=== PATIENT | female | born 1950 | race African-American/Black ===

== ENCOUNTER 2018-10-07 10:53 | Day surgery (SDC) | payer MEDICARE ==
[~2018-10-07 10:53] MED LIST: ACETAMINOPHEN 1,000 MG/100 ML BTL IV ONE; CEFAZOLIN 2 Gram 2 GM/50 ML BAG IVPB ONE
[2018-10-07] MEDS ORDERED: FENTANYL PF 100MCG/2ML VIAL IV ONE (10:54)
[2018-10-07] MEDS ORDERED: BUPIVACAINE 0.5% W/EPI MPF 30 ML VIAL IVP ONE (10:54)
[2018-10-07] MEDS ORDERED: MORPHINE SULFATE 4 MG/ML VIAL IVP ONE (10:54)
[2018-10-07] MEDS ORDERED: SEVOFLURANE 250 ML INH ONE (10:54)
[2018-10-07] MEDS ORDERED: PROPOFOL 10 MG/ML VIAL IV ONE (10:54)
[2018-10-07] MEDS ORDERED: METHYLPREDNISOLONE 40MG/VIAL IM ONE (10:54)
[2018-10-07] MEDS ORDERED: KETOROLAC 30 MG/ML VIAL IVP ONE (10:54)
[2018-10-07] MEDS ORDERED: LIDOCAINE 2% MDV (20MG/ML) 20ML VIAL IV ONE (10:54)
[2018-10-07 11:11] LABS: BASO % 0.4 % (0-6); EOS % 0.5 % (0-6); GRAN % 54.8 % (47-80); HEMATOCRIT 42.8 % (35.0-47.0); HEMOGLOBIN 13.7 gm/dl (11.6-16.0); LYMPH % 38.7 % (16-45); MEAN CELL VOLUME 82.3 fl (81-97); MEAN CORPUSCULAR HEMOGLOBIN 26.3 pg (27-33); MEAN PLATELET VOLUME 9.6 fl (7.4-10.4); MONO % 5.6 % (0-9); PLATELET COUNT 292 K/uL (130-400); RED CELL DISTRIBUTION WIDTH 16.4 % (11.5-14.5); WHITE BLOOD COUNT W/O DIFF 7.5 K/uL (4.2-12.2)
[2018-10-07 11:23] LABS: CREATININE 1.2 mg/dL (0.5-0.9)
[2018-10-07] MEDS ORDERED: MORPHINE SULFATE 4 MG/ML VIAL ONE (12:51)
--- NOTE | 2018-10-08 08:50 | Operative Note ---
DATE OF SURGERY: 10/07/2018 PREOPERATIVE DIAGNOSIS: Internal derangement of the left knee. POSTOPERATIVE DIAGNOSES: 1. Grade 3 chondromalacia of the patella. 2. Grade 3 chondromalacia of the notch. 3. Tear of the anterior horn of the medial meniscus. 4. 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 5. Grade 3 chondromalacia of the medial tibial plateau. 6. Moderate synovitis. OPERATION: 1. Left knee arthroscopy with partial medial meniscectomy. 2. Left knee arthroscopy with limited synovectomy. 3. Left knee arthroscopy with intraarticular debridement with chondroplasty. Staff Surgeon: Colton Spicer MD Anesthesia: General. Preparation: Chloraprep. Individual Considerations: None. PROCEDURE: The patient was taken to the operating room and placed supine on the operating room table. The patient had a successful induction with general anesthetic. The left lower extremity was prepped and draped in the usual fashion. The patient had a superolateral inflow cannula placed. Skin was infiltrated with 0.5% Marcaine with epinephrine prior. A clear effusion was drained. The knee was inflated with normal saline. An inferomedial and an inferolateral portal were made in a similar fashion. The arthroscope was introduced through the inferolateral portal up into the pouch. Patellofemoral compartment showed grade 3 change throughout and this was debrided with a shaver. There was synovitis in the pouch but not as much in the gutters. Synovectomy was performed with a shaver. Medially, a complex anterior horn tear was debrided back to a stable rim with a shaver. Grade 3 change to grade 4 change in the medial femoral condyle with central fissure with loose marginal cartilage in either end with small areas of exposed bone. This was all smoothed off with a shaver. Tibial plateau had grade 3 change, which was smoothed. The remainder of the meniscus was intact. In the notch, the cruciates were normal. Lateral compartment structures were normal except for some soft changes on the lateral tibial plateau which did not require debridement. The knee was then irrigated out with saline to remove loose floating debris. Portals were closed with dale, and 20 mL of 0.5% Marcaine with epinephrine along with 4 mg of morphine and 40 mg of Depo-Medrol were injected into the knee. A sterile bulky compressive dressing was applied. The patient tolerated the procedure well. Needle and sponge counts were correct. Estimated blood loss was minimal. She was taken back to recovery in good condition. There were no complications. LEANNA
== END 2018-10-07 13:50 | disposition home or self-care (01) ==
LOC: SUR 10:53
PROVIDERS: ATTEND Orthopaedic Surgery
DX: S83.232A Complex tear of medial meniscus, current injury, left knee, initial encounter (principal); M94.262 Chondromalacia, left knee; M22.42 Chondromalacia patellae, left knee; M65.9 Synovitis and tenosynovitis, unspecified
CPT/HCPCS: 80048; 85025; J1030; J1885; J2270